=== PATIENT | male | born 1955 | race Caucasian/White ===

== ENCOUNTER 2025-04-16 17:26 | Inpatient (IN) | payer MEDICARE, SELFPAY ==
[2025-04-16 17:51] VITALS: BMI 28.6
[2025-04-16 18:45] VITALS: BP 114/68; PULSE 70; RESP 16; TEMP 36; O2SAT 97; BMI 28.6
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
[2025-04-17 08:00] VITALS: BP 109/67; PULSE 67; RESP 16; TEMP 36.4; O2SAT 97
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
[2025-04-17 09:25] LABS: Hemoglobin A1C 140.6016 umol/L; Total Hemoglobin (HGBA1C) 3945.4314 umol/L
[2025-04-17 09:41] LABS: Alanine Aminotransferase 22 U/L (0-40); Albumin Level 4.5 g/dL (3.5-5.0); Alkaline Phosphatase 75 U/L (39-117); Anion Gap 12 (12-20); Aspartate Amino Transferase 24 U/L (5-37); Blood Urea Nitrogen 26 mg/dL (9-16); Calcium 9.8 mg/dL (8.4-10.2); Carbon Dioxide 29 mmol/L (22-29); Chloride 104 mmol/L (96-108); Cholesterol 233 mg/dL (<200); Creatinine Clr Calc Pharmacy 79.2; Estimated Glomerular Filt Rate > 60; HDL Cholesterol 48 mg/dL (>40); Potassium 4.4 mmol/L (3.3-5.1); Sodium 141 mmol/L (135-145); Total Protein 7.6 g/dL (6.5-8.0); Triglycerides 145 mg/dL (<150)
[2025-04-17 10:00] LABS: Free T4 (Free Thyroxine) 1.09 ng/dL (0.71-1.85); Thyroid Stimulating Hormone 2.31 uIU/mL (0.32-4.0)
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
[2025-04-17 10:14] LABS: Folate 10.3 ng/mL (> or = 4.0); Vitamin B12 562 pg/mL (200-900)
[2025-04-17 13:12] LABS: Prostate Specific Antigen 5.45 ng/mL (<0.05-4.0)
--- NOTE | 2025-04-17 13:42 | PM.EVENT ---
Event Note Date of Service: 04/17/25 Event Note: Discussed case with Dr. Salas, patient will need follow up in the office in 6-8 weeks upon discharge for follow up BPH. Time Spent With Patient Time: Total time managing care of this patient today ____ minutes.
[2025-04-17 20:00] VITALS: BP 106/70; PULSE 90; TEMP 36.9; O2SAT 96
[2025-04-18 08:14] VITALS: BP 103/61; PULSE 83; RESP 18; TEMP 36.6; O2SAT 97
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
[2025-04-18 19:58] VITALS: BP 146/72; PULSE 80; RESP 20; TEMP 36.9; O2SAT 96
[2025-04-19 07:54] VITALS: BP 101/62; PULSE 76; RESP 18; TEMP 36.9; O2SAT 96
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
[2025-04-19 20:00] VITALS: BP 109/63; PULSE 79; RESP 20; TEMP 36.9; O2SAT 97
[2025-04-20 08:00] VITALS: RESP 16
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
[2025-04-20 19:42] VITALS: BP 116/71; PULSE 72; TEMP 36.6; O2SAT 99
[2025-04-21 07:56] VITALS: BP 118/68; PULSE 75; RESP 16; TEMP 36.6; O2SAT 97
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
[2025-04-21 19:34] VITALS: BP 128/68; PULSE 86; TEMP 36; O2SAT 97
--- NOTE | 2025-04-22 | ECG_ITS ---
Test Reason : qtc Blood Pressure : */* mmHG Vent. Rate : 64 BPM Atrial Rate : 64 BPM P-R Int : 124 ms QRS Dur : 86 ms QT Int : 432 ms P-R-T Axes : 37 41 50 degrees QTcB Int : 445 ms Normal sinus rhythm Normal ECG No previous ECGs available Referred By: Darian Michelle Electronically Signed By: DONNA GOLDBERG
[2025-04-22 07:48] VITALS: BP 105/66; PULSE 69; RESP 16; TEMP 36.4; O2SAT 95
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
[2025-04-22 20:00] VITALS: BP 143/79; PULSE 101; TEMP 36.4; O2SAT 97
[2025-04-23 08:00] VITALS: BP 124/74; PULSE 73; RESP 16; TEMP 36.1; O2SAT 97
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
[2025-04-23 20:00] VITALS: BP 119/71; PULSE 75; RESP 16; TEMP 36.4; O2SAT 96
[2025-04-24 08:00] VITALS: BP 108/63; PULSE 94; RESP 16; O2SAT 97
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
== END 2025-04-24 10:30 | disposition home or self-care (01) | DRG 885 ==
PROVIDERS: Nurse Practitioner Family; Nurse Practitioner Psychiatric/Mental Health; Admitting Provider Psychiatry & Neurology Psychiatry; PCP Internal Medicine; Visit Provider Psychiatry & Neurology Psychiatry
DX: F25.0 Schizoaffective disorder, bipolar type (principal); F43.10 Post-traumatic stress disorder, unspecified; N40.1 Benign prostatic hyperplasia with lower urinary tract symptoms; R39.12 Poor urinary stream; R35.0 Frequency of micturition; Z79.01 Long term (current) use of anticoagulants; Z86.718 Personal history of other venous thrombosis and embolism; Z79.899 Other long term (current) drug therapy
CPT/HCPCS: 36415; 80053; 80061; 82607; 82746; 83036; 84153; 84439; 84443; 87086; 93005

== ENCOUNTER 2025-04-16 17:26 | Outpatient (BNV) | payer MEDICARE, SELFPAY | END 2025-04-22 16:31 | PROVIDERS: Admitting Provider Psychiatry & Neurology Psychiatry; PCP Internal Medicine; Visit Provider Internal Medicine | DX: Z13.6 Encounter for screening for cardiovascular disorders (principal) | CPT/HCPCS: 93010 ==

== ENCOUNTER → 2025-04-16 17:26 | Outpatient (BNV) | payer MEDICARE, SELFPAY | PROVIDERS: Admitting Provider Psychiatry & Neurology Psychiatry; PCP Internal Medicine; Visit Provider Psychiatry & Neurology Psychiatry | DX: F31.9 Bipolar disorder, unspecified (principal); F43.10 Post-traumatic stress disorder, unspecified | CPT/HCPCS: 90792 ==

== ENCOUNTER → 2025-04-16 17:26 | Outpatient (BNV) | payer MEDICARE, SELFPAY | PROVIDERS: Admitting Provider Psychiatry & Neurology Psychiatry; PCP Internal Medicine; Visit Provider Nurse Practitioner Family | DX: R30.0 Dysuria (principal) | CPT/HCPCS: 99222; 99499 ==

== ENCOUNTER 2025-07-17 09:06 | Outpatient (AMB) | payer MEDICARE, SELFPAY ==
--- NOTE | 2025-07-17 09:04 | MHC.OFFVIS ---
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 He is a patient of Dr. Modi. He is seen for the following urologic conditions - elevated PSA - lower urinary tract symptoms Lower urinary tract symptoms Weak stream Feelings of incomplete emptying PVR today 50 cc Placed on tamsulosin at hospital admission Start finasteride Repeat PSA six-month with uroflow and bladder ultrasound PSA - 05/02 5.5 PFSH Medical History (Updated 07/17/25 @ 09:35 by Palomo Salas MD) Schizoaffective disorder PTSD (post-traumatic stress disorder) Social History Household Members: Family Housing: House Do you presently have visiting nurse or other home services: No Patient Tobacco Use Status: Never used Tobacco service: No Sexual orientation: Straight/Heterosexual Review of Systems Const Denies chills and Denies fever(s) Card Reports no additional complaints and Denies syncope Resp Denies cough GI Denies abdominal pain and Denies heartburn Reports as per HPI and Denies change in libido Neuro Denies syncope Psych Denies change in libido Endo Denies change in libido Physical Exam Const General: cooperative, healthy appearing, comfortable and no acute distress Orientation/consciousness: patient oriented x3 HEENT Face and sinus: Yes normal facial exam Mouth: moist mucous membranes Neck Neck: Yes normal visual inspection, Yes full ROM and Yes trachea midline Chest Chest palpation & inspection: normal inspection of the chest Resp Effort & Inspection: normal respiratory effort, able to speak in complete sentences and no respiratory distress GI Inspection: Yes normal to inspection Back/Spine/Pelvis Cervical Spine: normal cervical lordosis Thoracic/Lumbar Spine: thoracic and lumbar spine normal to inspection Skin General skin exam: no rashes or lesions noted Neuro General: patient oriented x3, gait normal, tone normal and moves all extremities Extrem General: Yes normal to inspection and Yes capillary refill normal Assessment & Plan Assessment & Plan (1) Elevated PSA: Code(s): R97.20 - Elevated prostate specific antigen [PSA] Category: Medical (2) Weak urinary stream: Code(s): R39.12 - Poor urinary stream Category: Medical (3) Incomplete emptying of bladder due to benign prostatic hyperplasia: Code(s): N40.1 - Benign prostatic hyperplasia with lower urinary tract symptoms; R33.9 - Retention of urine, unspecified Category: Medical Plan Combination therapy Bladder ultrasound Uroflow Orders: Orders US bladder 6 Months N40.1 - Benign prostatic hyperplasia with lower urinary tract symptoms, R33.9 - Retention of urine, unspecified Prostate Specific Antigen 6 Months R97.20 - Elevated prostate specific antigen [PSA] Medications: New finasteride 5 mg PO DAILY 90 tabs 1RF 90 days R97.20 - Elevated prostate specific antigen [PSA] Changed From tamsulosin 0.4 mg PO BEDTIME 30 days 30 caps 0RF R97.20 - Elevated prostate specific antigen [PSA] To tamsulosin 0.4 mg PO BEDTIME 90 caps 1RF 90 days R97.20 - Elevated prostate specific antigen [PSA] Patient Instructions: This note is constructed using voice recognition software. While every effort has been made to ensure accuracy solar energy consultant and designer errors may have been included. Imaging studies, laboratory and physical exam results were discussed and reviewed in detail. No major barriers to patient understanding were identified. An opportunity to ask questions regarding the treatment plan was provided. All questions were answered. The patient expressed understanding and agreement with the above treatment plan. The patient is aware they should contact our office by phone for worsening of their current condition or the appearance of new urologic symptoms. Compliance is encouraged with any medications and followup testing that is ordered. It is a privilege to participate in the urologic care of your patient. If you have any questions or concerns regarding treatment for the above conditions, or other urologic issues, please do not hesitate to contact me. The office telephone contact is [phone]. Sincerely, Dr Palomo Salas MD, [facility] - Urology Compassionate Specialist Care for the Genitourinary System Coding Level of Care Code New Pt Level 4 (57871) Diagnoses Elevated PSA R97.20 Weak urinary stream R39.12 Incomplete emptying of bladder due to benign prostatic hyperplasia N40.1; R33.9
== END 2025-07-17 09:55 | disposition home or self-care (01) ==
LOC: HO.HUSH 09:07
PROVIDERS: PCP Internal Medicine; Visit Provider Urology
DX: N40.1 Benign prostatic hyperplasia with lower urinary tract symptoms (principal); R97.20 Elevated prostate specific antigen [PSA]; R39.12 Poor urinary stream; R33.9 Retention of urine, unspecified
CPT/HCPCS: 99204

== ENCOUNTER → 2025-07-17 09:06 | Outpatient (BNVA) | payer MEDICARE, SELFPAY | PROVIDERS: PCP Internal Medicine; Visit Provider Urology | DX: R97.20 Elevated prostate specific antigen [PSA] (principal); R39.12 Poor urinary stream; N40.1 Benign prostatic hyperplasia with lower urinary tract symptoms; R33.9 Retention of urine, unspecified | CPT/HCPCS: 51798; 81003; 99202 ==